=== PATIENT | female | born 1975 | race Caucasian/White ===

== ENCOUNTER 2016-11-11 06:18 | Day surgery (SDC) | payer MEDICAID ==
[2016-11-10 11:42] LABS: BASOPHILS % 0.5 % (0.0-2.0); EOSINOPHILS # 0.1 10^3/ul (0.0-0.5); EOSINOPHILS % 0.8 % (0.0-7.0); LYMPHOCYTES # 1.4 10^3/ul (0.8-2.9); LYMPHOCYTES % 24.3 % (15.0-51.0); MEAN CORPUSCULAR HEMOGLOBIN 27.8 pg (29.0-33.0); MEAN CORPUSCULAR HGB CONC 32.4 g/dl (32.0-37.0); MEAN CORPUSCULAR VOLUME 85.6 fl (82.0-101.0); MEAN PLATELET VOLUME 10.2 fl (7.4-10.4); MONOCYTE # 0.4 10^3/ul (0.3-0.9); MONOCYTES % 6.6 % (0.0-11.0); NEUTROPHILS % 67.5 % (39.0-77.0); PLATELET COUNT 298 10^3/UL (140-415); RED BLOOD COUNT 4.32 10^6/ul (4.20-5.40); RED CELL DISTRIBUTION WIDTH 13.8 % (11.5-14.5); WHITE BLOOD COUNT 5.9 10^3/ul (4.8-10.8)
[2016-11-10 11:56] LABS: ADD UMIC NO; UR ASCORBIC ACID NEGATIVE (NEGATIVE); UR BILIRUBIN (Dip) NEGATIVE (NEGATIVE); UR BLOOD (Dip) NEGATIVE (NEGATIVE); UR CLARITY CLEAR (CLEAR); UR COLOR YELLOW (YELLOW); UR GLUCOSE (Dip) NEGATIVE (NEGATIVE); UR KETONES (Dip) NEGATIVE (NEGATIVE); UR LEUKOCYTE ESTERASE (Dip) NEGATIVE Leu/ul (NEGATIVE); UR NITRITE (Dip) NEGATIVE (NEGATIVE); UR SPECIFIC GRAVITY (Dip) 1.012 (1.003-1.030); UR TOTAL PROTEIN (Dip) NEGATIVE (NEGATIVE); UR UROBILINOGEN (Dip) NEGATIVE (NEGATIVE)
[2016-11-10 11:57] LABS: INR 0.98
[2016-11-10 11:58] LABS: PARTIAL THROMBOPLASTIN TIME 28.7 Sec (25.0-35.0)
[2016-11-10 12:01] LABS: ALBUMIN/GLOBULIN RATIO 1.37; BILIRUBIN,INDIRECT 0.1 mg/dl (0-1.1); BILIRUBIN,TOTAL 0.1 mg/dl (0.2-1.3); TOTAL PROTEIN 6.9 g/dl (6.1-8.1)
[2016-11-10 12:08] LABS: CALCIUM 8.9 mg/dl (8.4-10.2); CREATININE 0.59 mg/dl (0.44-1.00); POTASSIUM 4.5 mmol/L (3.5-5.1)
[2016-11-11] VITALS (14 sets, daily range): BP systolic 84–113; BP diastolic 47–61; PULSE 52–78; RESP 10–23; Ht 154.9 cm; Wt 71.9 kg
[~2016-11-11] VITALS: Ht 154.9 cm; Wt 71.9 kg
[2016-11-11] MEDS ORDERED: ROCURONIUM 50 MG INJ ONE (07:00)
[2016-11-11] MEDS ORDERED: PROPOFOL 200 MG INJ ONE (07:00)
[2016-11-11] MEDS ORDERED: LIDOCAINE 2% (SDV) 5 ML INJ ONE (07:00)
[2016-11-11] MEDS ORDERED: CEFAZOLIN 1 GM INJ ONE (07:00)
[2016-11-11] MEDS ORDERED: BUPIVACAINE 0.5%/EPI (SDV) 30 ML INJ INJ ONE (07:30)
[2016-11-11 07:58] LABS: BASOPHILS % 0.5 % (0.0-2.0); EOSINOPHILS # 0.1 10^3/ul (0.0-0.5); EOSINOPHILS % 1.9 % (0.0-7.0); HEMATOCRIT 37.2 % (37.0-47.0); HEMOGLOBIN 11.9 g/dl (12.0-16.0); LYMPHOCYTES # 1.4 10^3/ul (0.8-2.9); LYMPHOCYTES % 23.7 % (15.0-51.0); MEAN CORPUSCULAR HEMOGLOBIN 27.2 pg (29.0-33.0); MEAN CORPUSCULAR VOLUME 85.1 fl (82.0-101.0); MEAN PLATELET VOLUME 10.9 fl (7.4-10.4); MONOCYTE # 0.5 10^3/ul (0.3-0.9); MONOCYTES % 8.2 % (0.0-11.0); NEUTROPHIL # 3.7 10^3/ul (1.6-7.5); NEUTROPHILS % 65.3 % (39.0-77.0); PLATELET COUNT 302 10^3/UL (140-415); RED BLOOD COUNT 4.37 10^6/ul (4.20-5.40); WHITE BLOOD COUNT 5.7 10^3/ul (4.8-10.8)
[2016-11-11] MEDS ORDERED: FENTAnyl 50 MCG/ML VIAL ONE (08:05)
[2016-11-11] MEDS ORDERED: BUPIVACAINE 0.5%/EPI (SDV) 30 ML INJ ONE (08:07)
[2016-11-11] MEDS ORDERED: DEXAMETHASONE 4 MG/ML 1 ML INJ ONE (08:38)
[2016-11-11] MEDS ORDERED: ONDANSETRON 4 MG INJ ONE (08:39)
[2016-11-11 08:40] LABS: INR 0.91; PROTIME 12.3 Sec (12.2-14.2)
[2016-11-11 08:41] LABS: PARTIAL THROMBOPLASTIN TIME 30.7 Sec (25.0-35.0)
[2016-11-11] MEDS ORDERED: KETOROLAC 30 MG INJ ONE (08:46)
[2016-11-11] MEDS ORDERED: GLYCOPYRROLATE 0.4 MG INJ ONE (08:48)
[2016-11-11] MEDS ORDERED: NEOSTIGMINE 3 MG/3 ML SYRINGE ONE (08:48)
[2016-11-11 08:51] LABS: ALBUMIN/GLOBULIN RATIO 1.33; BILIRUBIN,INDIRECT 0.2 mg/dl (0-1.1); BILIRUBIN,TOTAL 0.2 mg/dl (0.2-1.3)
[2016-11-11] MEDS ORDERED: LACTATED RINGER'S 1,000 ML IV SCH (08:51)
--- NOTE | 2016-11-11 08:54 | PD.PPDC ---
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
[2016-11-11] MEDS ORDERED: morphine 2 MG INJ IV PRN (09:00)
[2016-11-11] MEDS ORDERED: ONDANSETRON 4 MG INJ IV PRN ×2 (09:00→09:30)
[2016-11-11] MEDS ORDERED: ACETAMINOPHEN 325 MG TAB PO PRN (09:00)
[2016-11-11] MEDS ORDERED: OXYCODONE/ACETAMINOPHEN (5/325) TAB PO PRN ×3 (09:00→09:30)
[2016-11-11] MEDS ORDERED: IBUPROFEN 600 MG TAB PO PRN (09:00)
[2016-11-11 09:02] LABS: CALCIUM 8.9 mg/dl (8.4-10.2); CREATININE 0.59 mg/dl (0.44-1.00); POTASSIUM 3.8 mmol/L (3.5-5.1)
[2016-11-11 09:06] LABS: ADD UMIC YES; UR ASCORBIC ACID NEGATIVE (NEGATIVE); UR BACTERIA FEW /HPF (NONE SEEN); UR BILIRUBIN (Dip) NEGATIVE (NEGATIVE); UR BLOOD (Dip) 1+ mg/dL (NEGATIVE); UR CLARITY SLIGHTLY CLOUDY (CLEAR); UR COLOR YELLOW (YELLOW); UR GLUCOSE (Dip) NEGATIVE (NEGATIVE); UR KETONES (Dip) NEGATIVE (NEGATIVE); UR LEUKOCYTE ESTERASE (Dip) NEGATIVE Leu/ul (NEGATIVE); UR NITRITE (Dip) NEGATIVE (NEGATIVE); UR RBC 2 /HPF (0-5); UR SPECIFIC GRAVITY (Dip) 1.018 (1.003-1.030); UR SQUAMOUS EPITHELIAL CELL FEW /HPF (FEW); UR TOTAL PROTEIN (Dip) NEGATIVE (NEGATIVE); UR UROBILINOGEN (Dip) NEGATIVE (NEGATIVE)
[2016-11-11 09:07] LABS: UR MUCUS FEW /HPF (NONE SEEN)
[2016-11-11] MEDS ORDERED: hydrALAzine 20 MG INJ IV PRN (09:30)
[2016-11-11] MEDS ORDERED: LABETALOL HCL 20MG INJ IV PRN (09:30)
[2016-11-11] MEDS ORDERED: EPHEDrine SULFATE 50 MG/5 ML SYG IV PRN (09:30)
[2016-11-11] MEDS ORDERED: FENTAnyl 50 MCG/ML VIAL IV PRN ×3 (09:30)
[2016-11-11] MEDS ORDERED: MEPERIDINE 25 MG INJ IV PRN (09:30)
[2016-11-11] MEDS ORDERED: DIPHENHYDRAMINE 50 MG INJ IV PRN (09:30)
--- NOTE | 2016-11-11 12:20 | OPR ---
DATE OF OPERATION: 11/11/2016 PREOPERATIVE DIAGNOSIS: Multiparity. POSTOPERATIVE DIAGNOSIS: Same as above. OPERATIVE PROCEDURE: Laparoscopic bilateral tubal ligation. SURGEON: Dr. Aldair Elaine ANESTHESIA: General by Dr. Davis. COMPLICATIONS: None. EBL negligible. SPECIMENS: No specimens were sent. OPERATIVE PROCEDURE AND FINDINGS: The patient under generalized anesthesia. She was laying on the table in the dorsal lithotomy position. Her abdomen, perineum and vagina were prepped and draped after 3 minutes in a sterile fashion. A small 5 mm incision was made at the level of the umbilicus. The Veress needle was inserted while we were attempting at the anterior abdominal wall. After the tip of the needle was inserted while I was tenting up the anterior abdominal wall.Good pneumoperitoneum was obtained and the needle was then removed. A 5 mm trocar was passed in and through this port, the 5 mm laparoscope with camera was inserted.. The pelvis was inspected and found to be normal. There were no adhesions from previous surgeries. A 2nd port was placed under direct vision of the hypogastric area and another 5 mm trocar. Through this port, we took a Kepingler clamp with the gyrus device and 35 hunter of current was inserted. The right tube was picked in its mid portion and burned through and through for about 1.5 of cm twice. The same was done on the contralateral side. There was no bleeding or complications. Pictures were taken for documentation. All the instruments were then removed from the patient's abdomen as well as much CO2 as possible. The incisions were infiltrated with 0.5 percent Marcaine with epinephrine and a total of 10 cc and were closed with 4-0 Monocryl. Band-Aids were applied. The patient withstood the procedure well and was taken to recovery room with all vital signs stable. ESTIMATED BLOOD LOSS: Negligible. Needle, sponge, and instrument count at the end of the procedure was correct twice. Dictated By: Aldair Elaine MD /[email or web address] /Document#: [id number] MEL
--- NOTE | 2016-11-11 13:55 | OPR ---
Date/Time of Note Date/Time of Note DATE: 11/11/16 TIME: 13:54 Operative Report Preoperative Diagnosis Multiparity. Postoperative Diagnosis Same. Operation/Procedure Performed Laparoscopic BTL. Surgeon: JORGE L CHAMORRO MD Second assist: RUSSELL GUZMAN Anesthesia: general Estimated Blood Loss: minimal Complications: None JORGE L CHAMORRO MD Nov 11, 2016 13:55
== END 2016-11-11 11:00 | disposition home or self-care (01) ==
LOC: SDS 06:18
PROVIDERS: ATTEND Specialist
DX: Z30.2 Encounter for sterilization (principal)
CPT/HCPCS: 58670; 80053; 81001; 81003; 84703; 85025; 85610; 85730; 86850; 86900; 86901; J0690; J1100; J1885; J2405; J2710; J3010; Z7512; Z7610